=== PATIENT | female | born 1985 | race Caucasian/White ===

== ENCOUNTER 2025-06-01 20:03 | Emergency (ER) | payer BC, SELFPAY ==
[2025-06-01 20:07] VITALS: BP 113/77
--- NOTE | 2025-06-01 22:46 | ED.GENMED ---
History of Present Illness
General
Chief Complaint: Anxiety
Source: patient
Time Seen by Provider: 06/01/25 22:10
History of Present Illness
History of Present Illness:
Note:
CHIEF COMPLAINT(S)
Severe and persistent anxiety with associated panic attacks
HISTORY OF PRESENT ILLNESS
The patient is a 40-year-old female with no stated past medical history relevant to todays complaints. She was initially prescribed Abilify (aripiprazole) in December, followed by Lamictal (lamotrigine) to manage frustration and anxiety symptoms. Four
weeks ago, under the guidance of her nurse practitioner, she abruptly discontinued Abilify after experiencing adverse effects, particularly feeling 'like a zombie' and having flat affect. The dosage of Abilify was 5 mg.
Approximately one and a half weeks after discontinuing Abilify, the patient began experiencing severe panic attacks, which she describes as the most intense of her life. These episodes are characterized by ringing in her ears, a racing heart, and
feeling of shakiness, starting from the moment she wakes up and lasting throughout the day. Panic attacks previously occurred but resolved within 20 minutes before beginning these medications.
The nurse practitioner suggested that the panic attacks could be attributed to Lamictal, and the Abilify might have been masking these effects. A rapid four-day taper off Lamictal was advised and completed. The patient has also tried hydroxyzine for
panic attacks, which initially was effective but is no longer providing relief due to the intensity of her current symptoms.
Despite using hydroxyzine previously with success, the patient now reports that her anxiety and panic attacks are unresponsive. During the conversation, she expressed concern about starting another long-term medication but was open to using a
short-term, as-needed medication like Xanax (alprazolam) to manage severe symptoms, provided it does not impact her ability to function, particularly at work.
The patient will follow up with her nurse practitioner on June 08 to evaluate her condition and consider further treatment options. The provider advised considering additional tests for thyroid function or other potential causes if her symptoms
persist without improvement in the coming weeks.
REVIEW OF SYSTEMS
- Psychiatric: Reports severe anxiety and frequent panic attacks, feeling of loud ringing in the ears, increased heart rate, and shakiness upon waking.
- Neurological: Episodic panic attacks with prolonged duration.
- Cardiovascular: Occasional racing heart associated with panic attacks.
PHYSICAL EXAM
General: Alert, no acute distress.
Skin: Warm, dry.
Head: Normocephalic, atraumatic.
Neck: Supple, trachea midline.
Eye Ears, nose, mouth and throat: Oral mucosa moist.
Cardiovascular: Heart regular without murmurs.
Respiratory: Lungs clear, respirations are non-labored.
Gastrointestinal : Abdomen nondistended
Back: Normal range of motion, normal alignment.
Musculoskeletal: Normal range of motion, normal strength.
Neurological: Alert and oriented to person, place, time, and situation, no focal neurological deficit observed.
Psychiatric: Cooperative, appropriate mood and affect.
PLAN
- Short-term prescription for an as-needed anxiolytic medication such as Xanax (alprazolam) for severe symptom relief.
- The patient is advised to use this medication only for breakthrough symptoms and not as a daily routine.
- Encourage engaging in non-pharmacological strategies for anxiety management, including exercise and distraction techniques.
- Follow-up planned with nurse practitioner on June 08.
- Consider evaluating thyroid function and other possible medical causes if symptoms persist without improvement.
DIFFERENTIAL DIAGNOSIS
The Differential Diagnosis includes, in no particular order and is not limited to:
1. Generalized Anxiety Disorder
2. Panic Disorder
3. Medication Withdrawal Syndrome
4. Bipolar Disorder with recent medication changes
5. Thyroid dysfunction (e.g., hyperthyroidism)
6. Other anxiety spectrum disorders
7. Pharmacological side effects from recent medication changes
8. Major Depressive Disorder with anxious distress
9. Substance-induced anxiety disorder
10. Cardiac arrhythmia causing symptomatic anxiety
Disposition:
SUMMARY OF ENCOUNTER
The patient, a 40-year-old female, presented with severe and persistent anxiety with associated panic attacks. The symptoms began approximately one and a half weeks after discontinuing aripiprazole and have been exacerbated compared to previous
episodes. The patient reported experiencing intense panic attacks characterized by ringing in the ears, racing heart, and shakiness. Hydroxyzine, which was previously effective, is no longer providing relief. The current visit aims to address the
patients anxiety and consider medication management, including the potential prescription of alprazolam for as-needed relief.
ASSESSMENT
The patients anxiety symptoms appear to be related to recent changes in psychiatric medication, specifically the discontinuation of aripiprazole. The severity and persistence of panic attacks suggest a need for short-term anxiolytic treatment.
PLAN
- Prescribe alprazolam for as-needed use to manage severe anxiety symptoms.
- The patient should follow up with her psychiatric practitioner and primary care physician as planned.
- Evaluate further medical workup if symptoms persist without improvement.
PATIENT EDUCATION AND COUNSELING
The patient was advised about the short-term use of alprazolam to manage severe anxiety symptoms and the importance of monitoring for any side effects. She was informed about non-pharmacological strategies to help manage her anxiety symptoms.
FOLLOW-UP INSTRUCTIONS
The patient is to follow up with her psychiatric practitioner on June 08 and consult her primary care physician. Further medical workup for thyroid function or other potential causes will be considered if symptoms do not improve.
MEDICAL DECISION MAKING
- Number and Complexity of Problems Addressed: Anxiety related to psychiatric medication changes, including discontinuation of aripiprazole. Differential diagnosis includes Generalized Anxiety Disorder, Panic Disorder, Medication Withdrawal
Syndrome, Thyroid dysfunction, among others.
- Data: None applicable as no specific lab results were discussed.
- Risk: Prescription medication (alprazolam) prescribed; the risk associated with benzodiazepine use was considered.
DIAGNOSIS
- Anxiety Disorder, unspecified (ICD-10: F41.9)
- Panic Disorder (ICD-10: F41.0)
Past History
Past History
ED Past Medical History: None
ED Past Surgical History: None
Social History
Tobacco: Smoker
Alcohol: Occasional
Personal: Single
Living: with family
Phy Exam
Physical Exam
Physical Exam:
.
Course
Orders/Labs/Results
Orders:
Orders
06/01/25 22:45
Alprazolam [Xanax] 0.25 mg PO NOW STA
Vital Signs
Initial and Last Documented VS:
Initial Vital Signs
Temp Pulse Resp BP Pulse Ox
97.5 F 83 16 113/77 98
06/01/25 20:07 06/01/25 20:07 06/01/25 20:07 06/01/25 20:07 06/01/25 20:07
Last Documented Vital Signs
Temp Pulse Resp BP Pulse Ox
97.5 F 83 16 113/77 98
06/01/25 20:07 06/01/25 20:07 06/01/25 20:07 06/01/25 20:07 06/01/25 20:07
*Pulse Oximetry
SaO2: 98
Oxygen Mode of Delivery: Room air
Patient hypoxic: no
*Critical Care Note
Total Time (30-74mins, 75-104mins- exclusive of procedures): Not Applicable
ED Attending Note
-
Portions of this chart may have been created with voice recognition software.� Occasional wrong word or��sound alike� substitutions may have occurred due to the inherent limitations of voice recognition software.
Discharge Plan
Departure
Patient Disposition: Home (Routine Discharge)
Date of Disposition: 06/01/25
Time of Disposition: 22:47
Patient with high blood pressure during this ER visit?: No
Discharge Problem:
Anxiety, Medication adverse effect
Instructions: Anxiety, Adult (DC)
Prescriptions:
New
alprazolam [Xanax] 0.25 mg tablet
0.25 mg PO TID PRN (Reason: severe anxiety) Qty: 15 0RF
Referrals:
NONE,* [Family Provider, Internal Medicine]
Activity Restrictions/Additional Instructions:
Medication side effect
Return immediately for chest pain, palpitations, worsening symptoms or any other concerns. Please see your doctor in follow-up in the next 3 to 5 days as well as your psychiatric provider as planned on June 08.
Interventions
Interventions:
*General Assessment Last Done: 06/01/25 20:11
*Neglect/Abuse Screening Last Done: 06/01/25 20:11
*ED COVID-19 Vaccine History Last Done: 06/01/25 20:11
*ED Influenza Vaccine History Last Done: 06/01/25 20:11
[facility] Risk Assessment Tool Last Done: 06/01/25 21:22
*Risk Screen - Suicide (C-SSRS) Last Done: 06/01/25 20:11
ED-Psychological Assessment Last Done: 06/01/25 21:22
Discharge Date and Time
Print Language: YI
[2025-06-01 22:49] VITALS: BP 112/76
[2025-06-01] MEDS: XANAX 0.25 MG PO (22:54)
== END 2025-06-01 22:58 | disposition home or self-care (01) ==
LOC: EMR 20:03
PROVIDERS: EMERGENCY PHYSICIAN Emergency Medicine
DX: F41.9 Anxiety disorder, unspecified (principal); T50.905A Adverse effect of unspecified drugs, medicaments and biological substances, initial encounter; F41.0 Panic disorder [episodic paroxysmal anxiety]; F17.200 Nicotine dependence, unspecified, uncomplicated
CPT/HCPCS: 99283